=== PATIENT | male | born 1975 | race Caucasian/White ===

== ENCOUNTER 2017-07-12 15:52 | Emergency (ER) | payer SELFPAY ==
[~2017-07-12] VITALS: Ht 185.4 cm; Wt 156.0 kg
[2017-07-12 16:42] VITALS: BP 166/99; PULSE 77; RESP 18; TEMP 97.9; O2SAT 98
== END 2017-07-12 18:30 | disposition left against medical advice (07) ==
LOC: NED 15:52
DX: K08.89 Other specified disorders of teeth and supporting structures (principal)
CPT/HCPCS: 99281